=== PATIENT | male | born 1950 | race African-American/Black ===

== ENCOUNTER 2019-10-25 19:32 | Emergency (ER) | payer MEDICARE, MEDICAID ==
[~2019-10-25] VITALS: Ht 152.4 cm; Wt 100.0 kg
[2019-10-25 19:47] VITALS: BP 154/100
[2019-10-25] MEDS ORDERED: LORAZEPAM 2MG/ML CPJ ONE (19:58)
[2019-10-25] MEDS ORDERED: PROPOFOL 10MG/ML 100ML 100 ML IV SCH (20:00)
[2019-10-25] MEDS ORDERED: LORAZEPAM 2MG/ML CPJ IV ONE (20:15)
[2019-10-25] MEDS ORDERED: DEXTROSE 50% WATER 50ML SYRINGE IV ONE (20:15)
[2019-10-25] MEDS ORDERED: SODIUM BICARBONATE 8.4% 1 MEQ/ML 50ML SYR IV ONE (20:36)
[2019-10-25] MEDS ORDERED: EPINEPHRINE 0.1MG/ML (1:10,000) 10ML SYR ONE (20:36)
== END 2019-10-25 20:32 | disposition expired ==
LOC: ER 19:32
DX: E11.22 Type 2 diabetes mellitus with diabetic chronic kidney disease (principal); I13.2 Hypertensive heart and chronic kidney disease with heart failure and with stage 5 chronic kidney disease, or end stage renal disease; I50.84 End stage heart failure; N18.6 End stage renal disease; N17.9 Acute kidney failure, unspecified; E78.00 Pure hypercholesterolemia, unspecified; E83.51 Hypocalcemia; Z99.2 Dependence on renal dialysis; Z88.0 Allergy status to penicillin
CPT/HCPCS: 31500; 36556; 82962; 92950; 99285; J2060; J2704; J3490; 99291